=== PATIENT | female | born 1990 | race Caucasian/White ===

== ENCOUNTER 2018-01-22 23:34 | Emergency (ER) | payer BC, OTHER | END 2018-01-23 05:06 | disposition home or self-care (01) | LOC: FTE 23:34 | DX: R07.89 Other chest pain (principal) | CPT/HCPCS: 71045; 93005; 99284-25 ==

== ENCOUNTER 2018-08-03 02:24 | Emergency (ER) | payer BC ==
[2018-08-03] MEDS: HYDROCODONE/APAP (5/325) TAB PO (03:43)
[2018-08-03] MEDS: KETOROLAC 30 MG INJ IM (03:44)
== END 2018-08-03 06:26 | disposition home or self-care (01) ==
LOC: FTE 02:24
DX: S20.212A Contusion of left front wall of thorax, initial encounter (principal); X58.XXXA Exposure to other specified factors, initial encounter; Y92.9 Unspecified place or not applicable
CPT/HCPCS: 71046; 81025; 96372; 99284-25